=== PATIENT | female | born 1995 | race American Indian/Alaskan Native ===

== ENCOUNTER 2023-02-14 23:49 | Emergency (ER) | payer SELFPAY ==
[2023-02-15 05:38] VITALS: BP 96/72; PULSE 78
== END 2023-02-15 05:33 | disposition home or self-care (01) ==
LOC: JD.ED 23:49
DX: F10.929 Alcohol use, unspecified with intoxication, unspecified (principal); F17.210 Nicotine dependence, cigarettes, uncomplicated
CPT/HCPCS: 99282; 99284